=== PATIENT | female | born 1960 | race Caucasian/White ===

== ENCOUNTER 2017-02-07 12:21 | Outpatient (CLI) | payer OTHER | END 2017-02-07 12:22 | disposition home or self-care (01) | DX: S83.241A Other tear of medial meniscus, current injury, right knee, initial encounter (principal); M17.11 Unilateral primary osteoarthritis, right knee ==

== ENCOUNTER 2017-02-14 14:12 | Outpatient (CLI) | payer OTHER | END 2017-02-14 14:13 | disposition home or self-care (01) | DX: G47.33 Obstructive sleep apnea (adult) (pediatric) (principal) ==

== ENCOUNTER 2017-03-28 18:45 | Outpatient (CLI) | payer OTHER | END 2017-03-28 18:46 | disposition home or self-care (01) | DX: I82.511 Chronic embolism and thrombosis of right femoral vein (principal) ==

== ENCOUNTER 2018-09-27 15:24 | Outpatient (CLI) | payer OTHER ==
--- NOTE | 2018-09-28 14:20 | MRI Report ---
Reason: KNEE PAIN, LEFT Procedure Date: 09/27/2018 Accession Number: [id number] / [id number] Procedure: MRI - Knee LT W/O CPT Code: FULL RESULT: EXAM: LEFT KNEE MRI WITHOUT CONTRAST EXAM DATE: 09/27/2018 04:20 PM. CLINICAL HISTORY: KNEE PAIN, LEFT. COMPARISON: Left knee radiographs 07/11/2018. TECHNIQUE: Multiplanar, multisequence T1-weighted and fluid-sensitive sequences of the knee without contrast. Other: None. FINDINGS: Bones: No fractures. No osseous lesions. There is remodeling of the undersurface of the patella with associated subchondral edema and cystic change. Marrow signal is otherwise normal. There are tricompartmental osteophytes.. Articular Cartilage: There is complete denudation of the articular cartilage at the patella and trochlea, with multifocal subchondral edema and cystic change. There is a broad area of deep partial thickness cartilage loss at the central weightbearing medial femoral condyle with shallow partial-thickness cartilage thinning at the medial tibial plateau. No subchondral edema. There is shallow partial-thickness cartilage loss of the central weightbearing lateral tibial plateau and lateral femoral condyle without subchondral marrow edema. Tricompartmental osteophyte formation. Medial Meniscus: There is a horizontal oblique tear of the posterior horn of the medial meniscus extending to the tibial surface. Lateral Meniscus: The lateral meniscus is intact. Cruciate Ligaments: The anterior and posterior cruciate ligaments are intact. Collateral Ligaments: The medial collateral and lateral collateral ligamentous structures are intact. Tendons: The quadriceps, patellar, semimembranosus, and popliteus tendons are unremarkable. Musculature: No edema or fatty atrophy. Other: Small effusion. Lobulated popliteal cysts adjacent to the central and lateral aspect of the posterior joint capsule likely reflect ganglion cyst. No loose bodies. The medial and lateral retinacula are intact. The subcutaneous tissues and fat pads are unremarkable. IMPRESSION: 1. Left knee osteoarthrosis, with complete denudation of the patellofemoral articular cartilage and underlying subchondral edema and cystic change, deep partial thickness cartilage loss of the weightbearing medial femoral condyle, and shallow partial-thickness cartilage loss at the lateral compartment, with tricompartmental osteophyte formation. 2. Horizontal oblique tear of the posterior horn of the medial meniscus. 3. Intact lateral meniscus. 4. Intact cruciate and collateral ligaments. 5. Small knee joint effusion with a lobulated popliteal cyst likely reflecting a ganglion cyst. RADIA MUSCULOSKELETAL RADIOLOGY SECTION
== END 2018-09-27 15:25 | disposition home or self-care (01) ==
LOC: DI 15:24
PROVIDERS: ATTEND Physician Assistant Medical
DX: M17.12 Unilateral primary osteoarthritis, left knee (principal); S83.242A Other tear of medial meniscus, current injury, left knee, initial encounter; M71.22 Synovial cyst of popliteal space [Baker], left knee

== ENCOUNTER 2018-10-21 13:32 | Outpatient (CLI) | payer OTHER ==
--- NOTE | 2018-10-22 07:00 | Mammography Report ---
Reason: mastalgia bilat Procedure Date: 10/21/2018 Accession Number: [id number] / [id number] Procedure: MARY - Diagnostic Bilat 3D Dc CPT Code: 36432 FULL RESULT: EXAM: Diagnostic Bilat 3D Dc DATE: 10/21/2018 3:16 PM CLINICAL HISTORY: 58-year-old female presents with chronic left breast tenderness for the past few years. Patient has a history of breast cysts. TECHNIQUE: Bilateral CC and MLO as well as exaggerated CC views were obtained. COMPARISON: 11/08/2016, 11/01/2015, 10/21/2014, 03/12/2013, 02/26/2013. FINDINGS: The breasts demonstrate scattered fibroglandular densities bilaterally. Well-circumscribed isodense nodules in the right breast are again seen, stable and compatible with provided history of cysts. No suspicious masses, calcifications or architectural distortions are identified. IMPRESSION: Benign findings RECOMMENDATION: Recommend routine annual Screening mammography unless otherwise clinically indicated. BIRADS CATEGORY 2: Benign findings STANDARD QUALIFYING STATEMENTS: 1. This examination was not reviewed with the aid of Computer-Aided Detection (CAD). 2. A negative or benign imaging report should not delay biopsy if clinically suspicious findings are present. Consider surgical consultation if warrented. More than 5% of cancers are not identified by imaging. 3. Dense breasts may obscure an underlying neoplasm. 4. This examination was reviewed with the aid of 3D imaging (tomography).
== END 2018-10-21 13:33 | disposition home or self-care (01) ==
LOC: DI 13:32
PROVIDERS: ATTEND Physician Assistant Medical
DX: N64.4 Mastodynia (principal)
CPT/HCPCS: 77062; 77066

== ENCOUNTER 2018-10-25 08:00 | Outpatient (CLI) | payer OTHER ==
[2018-10-25 12:47] LABS: BASOPHILS % (AUTO) 0.4 %; EOSINOPHILS # (AUTO) 0.1 10^3/uL (0.0-0.7); EOSINOPHILS % (AUTO) 2.3 %; HGB - HEMOGLOBIN 12.8 g/dL (12.0-16.0); LYMPHOCYTES # (AUTO) 1.7 10^3/uL (1.5-3.5); LYMPHOCYTES % (AUTO) 27.2 %; MEAN CORPUSCULAR HGB CONC 33.4 g/dL (32.0-36.0); MEAN CORPUSCULAR VOLUME 80.9 fL (81.0-99.0); MEAN PLATELET VOLUME 7.7 fL (7.9-10.8); MONOCYTES # (AUTO) 0.6 10^3/uL (0.0-1.0); NEUTROPHILS # (AUTO) 3.9 10^3/uL (1.5-6.6); NEUTROPHILS % (AUTO) 61.1 %; PLT - PLATELET COUNT 208 10^3/uL (130-450); RED BLOOD COUNT 4.74 10^6/uL (4.20-5.40); RED CELL DISTRIBUTION WIDTH 15.8 % (12.0-15.0); WHITE BLOOD COUNT 6.3 x10^3/uL (4.8-10.8)
[2018-10-25 13:51] LABS: ALBUMIN 3.6 g/dL (3.2-5.5); ALKALINE PHOSPHATASE 100 IU/L (42-121); ALT ALANINE AMINOTRANSFERASE 16 IU/L (10-60); AST ASPARTATE AMINOTRANSFERASE 57 IU/L (10-42); BILIRUBIN,TOTAL 0.7 mg/dL (0.2-1.0); BUN - BLOOD UREA NITROGEN 11 mg/dL (6-20); CALCIUM 8.7 mg/dL (8.5-10.3); CARBON DIOXIDE - CO2 26 mmol/L (21-32); CHLORIDE 104 mmol/L (101-111); CHOL/HDL RATIO 4.8 (<4.4); CHOLESTEROL 207 mg/dL; CREATININE 0.7 mg/dL (0.4-1.0); GFR - MDRD 87 (>89); GLUCOSE 98 mg/dL (70-100); HDL CHOLESTEROL 43 mg/dL; LDL CHOLESTEROL,CALCULATED 141 mg/dL; LDL/HDL RATIO 3.3 (<4.4); SODIUM 138 mmol/L (135-145); TOTAL PROTEIN 7.3 g/dL (6.7-8.2); VLDL CHOLESTEROL 23 mg/dL
== END 2018-10-25 23:59 | disposition home or self-care (01) ==
LOC: LAB.WCP 08:00
PROVIDERS: ATTEND Physician Assistant Medical
DX: Z00.00 Encounter for general adult medical examination without abnormal findings (principal); E55.9 Vitamin D deficiency, unspecified
CPT/HCPCS: 36415; 80053; 80061; 82306; 83721; 84443; 85025

== ENCOUNTER 2019-08-25 11:09 | Outpatient (CLI) | payer OTHER ==
[2019-08-25 12:31] VITALS: BP 134/94
--- NOTE | 2019-08-25 12:31 | SLEEP CARE CONSULTATION ---
Information from patient questionnaire entered by Chelsea Bagley. I have reviewed and concur with the information entered by Chelsea Bagley. This document represents the service I personally performed and the decisions made by me, Rosa Ley, RN, MSN, [employer]. History of Present Illness Previous diagnosis: Moderate, Obstructive Sleep Apnea-Hypopnea Syndrome AHI: 17.6 Reason for CPAP/BiPAP follow up: annual (last seen January 2017 and thought had been here in 2018 ) Equipment type: CPAP Equipment obtained from: [facility] (having getting supplies despite calls ready but not availbable when went there.) Mask style: Nasal (Dreamwear) Mask brand: Respironics Backup mask available: No (wearing back up ) Last cushion change: 3 months ago Prior sleep studies: Yes Year and Where: 2007 [facility] CPAP Compliance Data - Data Reviewed with Patient Average duration of nightly device use: 8H 18M Compliance rate %: 100 Current pressure setting (cmH2O): 9 Humidity settin Heated hose settin Average residual AHI: 2.4 Subjective Patient concerns: reports: mask leak noise (a few times a night. ), condensation in mask/hose (in mask cushion only. ), dry mouth, nose, throat (has sjorgens and increased dryness with increase at night with CPAP a couple times a night), epistaxis (2 epitaxis this year with scant blood noted on tissue a few times a week), other (HEADACHE). denies: air blowing in eyes, nasal congestion Current pressure setting perceived as: comfortable On therapy, patient: reports: sleeping better, being more awake and alert during the day, more rested overall (but daytime fatigue. ). denies: awakening more refreshed, drowsiness while driving Initial [place] Sleepiness Scale score: 5 Current [place] Sleepiness Scale score: 2 Allergies and Home Medications Known drug allergies: Yes Home medication list reviewed: Yes Allergy and home medication list: Diltiazem 120mg daily Zyrtec 10mg as needed Vitamin 5000 daily. Review of Systems Review of systems same as previous: Yes Physical Exam Blood Pressure: 134/94 (monitors at home lower at home 120/80 range has guidelines ) Cuff size: long Heart Rate: 90 O2 Saturation: 97 Height: 5 ft 6 in Weight: 292 lb 12.8 oz Body Mass Index: 47.2 BMI Classification: Obesity Class 3 Nasal exam: positive: erythema, excoriation (left lower nare mucosa) Impression and Plan 1. Obstructive Sleep Apnea-Hypopnea Syndrome, moderate, with good treatment compliance and good apnea control. On CPAP therapy, the patient has better sleep quality and is more rested overall. To reduce mask leaks and disruption of sleep, she was shown a CPAP pillow. This and other styles can be bought online. She has gained weight and is on a Med dash diet by her slate splitting supervisor. It is m aking her feel better. She is also working out 4 days a week minimum. Thus I explained how her weight affects her apnea risk and CPAP pressure requirements. She is advised of symptoms to report for pressure adjustment. Since she has been noted to snore by her daughter, I will put her on an autoCPAP range to increase as needed as well as lower with weight loss. I will have this changed on her old CPAP until she can update her new CPAP. Since she is having difficulty getting supplies, she would like to transfer to another company. I will have my administrative support coordinator notify her of her choices and the CPAP will be updated with transfer DWO prescription. For her nasal dryness, she was given samples of Lily Ease nasal cream. She was informed not to use the humidity due to coldness of apartment. She was advised she could put distilled water in reservoir as a pass over so no condensation but some moisture to reduce dryness symptoms until she can get a new CPAP with heated hose. Patient's apnea severity and rationale for treatment to reduce apnea, improve sleep quality and reduce cardiovascular and cerebrovascular events was reviewed. I also reviewed the benefit of consistent device use of CPAP for gastric reflux. * Change CPAP pressure to 8-12 cmH2O * update CPAP * transfer to new DME * Implement methods to reduce nasal dryness. * Notify me if snoring with mask or feeling that the pressure is too much or too little * Attempt to lose weight * Return for follow up in 1 month after new device , or sooner if concerns arise I spent 100% of this 40 minute visit face to face with the patient with greater than 50% of this was spent time counseling the patient and coordination of care.
== END 2019-08-25 11:10 | disposition home or self-care (01) ==
LOC: SC 11:09
PROVIDERS: ATTEND Nurse Practitioner Family
DX: G47.33 Obstructive sleep apnea (adult) (pediatric) (principal); E66.9 Obesity, unspecified; Z68.42 Body mass index [BMI] 45.0-49.9, adult
CPT/HCPCS: 99212; 99215

== ENCOUNTER 2020-02-02 08:00 | Outpatient (CLI) | payer OTHER ==
[2020-02-02 11:44] LABS: BASOPHILS % (AUTO) 0.4 %; EOSINOPHILS # (AUTO) 0.2 10^3/uL (0.0-0.7); EOSINOPHILS % (AUTO) 3.1 %; HGB - HEMOGLOBIN 13.9 g/dL (12.0-16.0); LYMPHOCYTES # (AUTO) 2.1 10^3/uL (1.5-3.5); LYMPHOCYTES % (AUTO) 39.1 %; MEAN CORPUSCULAR HEMOGLOBIN 27.9 pg (27.0-31.0); MEAN CORPUSCULAR HGB CONC 32.7 g/dL (32.0-36.0); MEAN CORPUSCULAR VOLUME 85.3 fL (81.0-99.0); MEAN PLATELET VOLUME 9.5 fL (7.9-10.8); MONOCYTES # (AUTO) 0.5 10^3/uL (0.0-1.0); MONOCYTES % (AUTO) 9.7 %; NEUTROPHILS # (AUTO) 2.6 10^3/uL (1.5-6.6); NEUTROPHILS % (AUTO) 47.3 %; PLT - PLATELET COUNT 221 10^3/uL (130-450); RED BLOOD COUNT 4.98 10^6/uL (4.20-5.40); RED CELL DISTRIBUTION WIDTH 15.3 % (12.0-15.0); WHITE BLOOD COUNT 5.5 x10^3/uL (4.8-10.8)
[2020-02-02 12:24] LABS: FERRITIN 76.6 ng/mL (11.0-306.8)
[2020-02-02 12:45] LABS: % IRON SATURATION 14 % (20-50); ALBUMIN 3.9 g/dL (3.2-5.5); ALBUMIN/GLOBULIN RATIO 1.1 (1.0-2.2); ALKALINE PHOSPHATASE 79 IU/L (42-121); ALT ALANINE AMINOTRANSFERASE 17 IU/L (10-60); AST ASPARTATE AMINOTRANSFERASE 40 IU/L (10-42); BILIRUBIN,TOTAL 0.6 mg/dL (0.2-1.0); BUN - BLOOD UREA NITROGEN 14 mg/dL (6-20); CARBON DIOXIDE - CO2 25 mmol/L (21-32); CHLORIDE 104 mmol/L (101-111); CHOL/HDL RATIO 4.1 (<4.4); CHOLESTEROL 196 mg/dL; CREATININE 0.7 mg/dL (0.4-1.0); GFR - MDRD 86 (>89); GLUCOSE 110 mg/dL (70-100); HDL CHOLESTEROL 48 mg/dL; IRON 53 ug/dL (28-170); LDL CHOLESTEROL,CALCULATED 130 mg/dL; LDL/HDL RATIO 2.7 (<4.4); SODIUM 137 mmol/L (135-145); TOTAL IRON BINDING CAPACITY 370 ug/dL (250-450); TOTAL PROTEIN 7.3 g/dL (6.7-8.2); TRANSFERRIN 264 mg/dL (192-382); VLDL CHOLESTEROL 18 mg/dL
== END 2020-02-02 23:59 | disposition home or self-care (01) ==
LOC: LAB.WCP 08:00
PROVIDERS: ATTEND Physician Assistant Medical
DX: D64.9 Anemia, unspecified (principal); I10 Essential (primary) hypertension; M35.00 Sjogren syndrome, unspecified; I47.1 Supraventricular tachycardia; E78.9 Disorder of lipoprotein metabolism, unspecified
CPT/HCPCS: 36415; 80053; 80061; 82607; 82728; 83540; 83721; 84443; 84466; 85025

== ENCOUNTER 2020-02-23 10:56 | Outpatient (CLI) | payer OTHER ==
--- NOTE | 2020-02-23 12:55 | SLEEP CARE CONSULTATION ---
Information from patient questionnaire entered by Karma Small. I have reviewed and concur with the information entered by Karma Small. This document represents the service I personally performed and the decisions made by me, Ja Bailey MD, [facility]. History of Present Illness Previous diagnosis: Moderate, Obstructive Sleep Apnea-Hypopnea Syndrome AHI: 17.6 (in 2007) Reason for follow up: first compliance after device update Equipment type: CPAP Equipment obtained from: [facility] additional information: To minimize the risk of COVID-19 exposure, we have the option to conduct your visit with me over the phone. I will be able to discuss your health and offer medical advice. If you agree, we will bill your insurance. Do you agree to this telephone service: YES. HPI: Ms. Calderon called today for follow up of her recently acquired CPAP. She was diagnosed to have moderate obstructive sleep apnea-hypopnea syndrome. The patient wears with a Respironics DreamWear nasal cushion mask. She reports using the device nightly and all through the night. The compliance data show usage in 30 out of the past 30 nights, averaging 8.6 hours a night. The > 4 hour compliance rate for the past 30 days is 100%. She complained of no particular problem with the device such as soreness on the face, dry nose, epistaxis, nasal congestion or headache. She thinks that the pressure of 8 12 cmH2O is comfortable. On the CPAP therapy she notices improvement in her sleep quality, and that she wakes up feeling fresher in the morning and more awake/alert during the day. The average residual AHI is 0.6 : and air leak, 0.3 L/min. The 90th percentile pressure is 11.2 cmH2O. CPAP Compliance Data - Data Reviewed with Patient Average duration of nightly device use: 8.5 Compliance rate %: 100 Current pressure setting (cmH2O): 8-12 Humidity settin Average residual AHI: 0.6 Subjective Initial [place] Sleepiness Scale score: 5 Allergies and Home Medications Drug allergies reviewed: Yes Home medication list reviewed: Yes Review of Systems Review of systems same as previous: Yes Physical Exam Height: 5 ft 6 in Impression and Plan IMPRESSION: 1. Obstructive Sleep Apnea-Hypopnea Syndrome, moderate, with the patient doing well on nasal CPAP therapy. She has excellent compliance and significant clinical improvement. The current pressure appears effective and comfortable. Her mask fits well. Overall, she is very satisfied with treatment and plans to continue with it long-term. No adjustment is necessary today. PLAN: 1. Continue with autoCPAP set at 8 - 12 cmH2O. 2. Spend less time in bed because she is complaining of insomnia. 3. Return for follow up in a year or earlier if there is any problem. I spent 100% of the 12 minute phone call with the patient with greater than 50% of this spent counseling the patient and coordination of care.
== END 2020-02-23 10:57 | disposition home or self-care (01) ==
LOC: SC 10:56
PROVIDERS: ATTEND Internal Medicine Pulmonary Disease
DX: G47.33 Obstructive sleep apnea (adult) (pediatric) (principal)

== ENCOUNTER 2020-04-14 08:00 | Outpatient (CLI) | payer OTHER ==
[2020-04-14 13:29] LABS: BASOPHILS % (AUTO) 0.4 %; EOSINOPHILS # (AUTO) 0.2 10^3/uL (0.0-0.7); EOSINOPHILS % (AUTO) 3.3 %; HGB - HEMOGLOBIN 13.8 g/dL (12.0-16.0); LYMPHOCYTES % (AUTO) 36.2 %; MEAN CORPUSCULAR HEMOGLOBIN 26.7 pg (27.0-31.0); MEAN CORPUSCULAR HGB CONC 31.2 g/dL (32.0-36.0); MEAN CORPUSCULAR VOLUME 85.5 fL (81.0-99.0); MEAN PLATELET VOLUME 9.8 fL (7.9-10.8); MONOCYTES # (AUTO) 0.5 10^3/uL (0.0-1.0); MONOCYTES % (AUTO) 9.4 %; NEUTROPHILS # (AUTO) 2.8 10^3/uL (1.5-6.6); NEUTROPHILS % (AUTO) 50.5 %; PLT - PLATELET COUNT 222 10^3/uL (130-450); RED BLOOD COUNT 5.17 10^6/uL (4.20-5.40); RED CELL DISTRIBUTION WIDTH 15.4 % (12.0-15.0); WHITE BLOOD COUNT 5.5 x10^3/uL (4.8-10.8)
[2020-04-14 14:07] LABS: CALCIUM 8.9 mg/dL (8.5-10.3); CREATININE 0.7 mg/dL (0.4-1.0); CRP - C-REACTIVE PROTEIN 1.7 mg/dL (0-1.0)
== END 2020-04-14 23:59 | disposition home or self-care (01) ==
LOC: LAB.WCP 08:00
PROVIDERS: ATTEND Physician Assistant Medical
DX: R73.9 Hyperglycemia, unspecified (principal); R23.3 Spontaneous ecchymoses
CPT/HCPCS: 36415; 80048; 85025; 85651; 86140

== ENCOUNTER 2021-05-13 08:32 | Outpatient (CLI) | payer OTHER ==
--- NOTE | 2021-05-13 13:59 | XRAY Report ---
PROCEDURE: Knee 3 View BILAT INDICATIONS: ARTHRITIS, KNEES, BILATERAL TECHNIQUE: 3 views of the bilateral knee(s) were acquired. COMPARISON: MRI left knee 10-13 left knee x-ray 07/11/2018, right knee x-ray 10/13/2018 FINDINGS: Bones: No fractures or dislocations. No suspicious bony lesions. Left knee demonstrates moderate m edial and patellofemoral compartment narrowing. Periarticular osteophytes are present. No erosions. I n addition, there is mild lateral compartment narrowing, notably progressive compared to prior exam. The right extremity demonstrates tibial fransisca fixation with old distal fractures. Hardware is intact. T here is moderate medial/patellofemoral and mild lateral compartment narrowing with periarticular oste ophytes. No erosions. Soft tissues: No joint effusion. No suspicious soft tissue calcifications. IMPRESSION: 1. Tricompartmental arthritic changes bilaterally progressive compared to prior exam as above. Reviewed by: Ivonne Johnston MD on 05/13/2021 1:58 PM PDT Approved by: Ivonne Johnston MD on 05/13/2021 1:58 PM PDT Station ID: [id number]
== END 2021-05-13 08:33 | disposition home or self-care (01) ==
LOC: DI.N 08:32
PROVIDERS: ATTEND Physician Assistant Medical
DX: M17.0 Bilateral primary osteoarthritis of knee (principal)

== ENCOUNTER 2021-07-07 07:24 | Outpatient (CLI) | payer OTHER ==
[2021-07-07 12:17] LABS: BASOPHILS % (AUTO) 0.2 %; EOSINOPHILS # (AUTO) 0.2 10^3/uL (0.0-0.7); EOSINOPHILS % (AUTO) 2.7 %; HCT - HEMATOCRIT 43.7 % (37.0-47.0); HGB - HEMOGLOBIN 13.6 g/dL (12.0-16.0); LYMPHOCYTES # (AUTO) 2.1 10^3/uL (1.5-3.5); LYMPHOCYTES % (AUTO) 36.3 %; MEAN CORPUSCULAR HEMOGLOBIN 26.7 pg (27.0-31.0); MEAN CORPUSCULAR HGB CONC 31.1 g/dL (32.0-36.0); MEAN CORPUSCULAR VOLUME 85.9 fL (81.0-99.0); MEAN PLATELET VOLUME 9.7 fL (7.9-10.8); MONOCYTES # (AUTO) 0.5 10^3/uL (0.0-1.0); MONOCYTES % (AUTO) 9.3 %; NEUTROPHILS % (AUTO) 51.2 %; PLT - PLATELET COUNT 224 10^3/uL (130-450); RED BLOOD COUNT 5.09 10^6/uL (4.20-5.40); RED CELL DISTRIBUTION WIDTH 15.2 % (12.0-15.0); WHITE BLOOD COUNT 5.8 x10^3/uL (4.8-10.8)
[2021-07-07 12:24] LABS: ALBUMIN 3.9 g/dL (3.2-5.5); ALBUMIN/GLOBULIN RATIO 1.1 (1.0-2.2); ALKALINE PHOSPHATASE 84 IU/L (42-121); ALT ALANINE AMINOTRANSFERASE 20 IU/L (10-60); AST ASPARTATE AMINOTRANSFERASE 32 IU/L (10-42); BILIRUBIN,TOTAL 0.8 mg/dL (0.2-1.0); BUN - BLOOD UREA NITROGEN 15 mg/dL (6-20); CALCIUM 9.2 mg/dL (8.5-10.3); CARBON DIOXIDE - CO2 26 mmol/L (21-32); CHLORIDE 106 mmol/L (101-111); CHOL/HDL RATIO 5.3 (<4.4); CHOLESTEROL 230 mg/dL; CREATININE 0.8 mg/dL (0.4-1.0); GFR - MDRD 74 (>89); GLUCOSE 113 mg/dL (70-100); HDL CHOLESTEROL 43 mg/dL; LDL CHOLESTEROL,CALCULATED 169 mg/dL; LDL/HDL RATIO 3.9 (<4.4); POTASSIUM 4.2 mmol/L (3.5-5.0); SODIUM 141 mmol/L (135-145); TOTAL PROTEIN 7.6 g/dL (6.7-8.2); TRIGLYCERIDES 92 mg/dL; VLDL CHOLESTEROL 18 mg/dL
[2021-07-07 12:35] LABS: THYROID STIMULATING HORMONE 1.81 uIU/mL (0.34-5.60)
[2021-07-07 12:36] LABS: ESTIMATED AVERAGE GLUCOSE 143 mg/dL (70-100); HEMOGLOBIN A1c% 6.6 % (4.27-6.07)
== END 2021-07-07 23:59 | disposition home or self-care (01) ==
LOC: LAB.WCP 07:24
PROVIDERS: ATTEND Physician Assistant Medical
DX: Z00.00 Encounter for general adult medical examination without abnormal findings (principal); E78.5 Hyperlipidemia, unspecified; R73.9 Hyperglycemia, unspecified; D64.9 Anemia, unspecified
CPT/HCPCS: 36415; 80053; 80061; 83036; 83721; 84443; 85025

== ENCOUNTER 2021-07-15 09:02 | Outpatient (CLI) | payer OTHER ==
--- NOTE | 2021-07-18 16:00 | Mammography Report ---
BILATERAL DIGITAL SCREENING MAMMOGRAM 3D/2D: 07/15/2021 CLINICAL: Routine screening. Comparison is made to exams dated: 10/21/2018 mammogram, 11/08/2016 mammogram, 11/01/2015 mammogram, 10/21/2014 mammogram, 03/12/2013 mammogram, and 02/26/2013 mammogram - [facility]. Th ere are scattered fibroglandular elements in both breasts. No significant masses, calcifications, or other findings are seen in either breast. There has been no significant interval change. IMPRESSION: NEGATIVE There is no mammographic evidence of malignancy. A 1 year screening mammogram is recommended. This exam was interpreted at Station ID: [id number]. NOTE: For mammograms, a report in lay terms will be sent to the patient. Approximately 15% of breast malignancies will not be visualized mammographically. In the management of a palpable breast mass, a negative mammogram must not discourage biopsy of a clinically suspicious lesion. Electronically Signed By: Tommy Salazar M.D., jr/radha:07/15/2021 10:10:22 ACR BI-RADS Category 1: Negative 3341F PARENCHYMAL PATTERN: (A) - The breast(s) demonstrate(s) scattered fibroglandular densities. BI-RADS CATEGORY: (1) - 1 RECOMMENDATION: (ANNUAL) - Recommend routine annual screening mammography. [id number] 1 year screening LATERALITY: (B)
== END 2021-07-15 09:03 | disposition home or self-care (01) ==
LOC: DI 09:02
DX: Z12.31 Encounter for screening mammogram for malignant neoplasm of breast (principal)

== ENCOUNTER 2021-07-26 14:46 | Outpatient (CLI) | payer OTHER ==
--- NOTE | 2021-07-26 15:33 | SLEEP CARE CONSULTATION ---
Information from patient questionnaire entered by Karma Small. I have reviewed and concur with the information entered by Karma Small. This document represents the service I personally performed and the decisions made by , Ananya Reed ARNP. History of Present Illness Service Date and Time: 07/26/2021 1446 Previous diagnosis: Moderate, Obstructive Sleep Apnea-Hypopnea Syndrome AHI: 17.6 (in 2007) Reason for follow up: annual (last seen 01/2020) Equipment type: [facility] Mask style: Nasal Mask brand: Respironics (Dreamwear) Backup mask available: Yes (old mask) Last cushion change: last week Prior sleep studies: Yes Year and Where: [facility] additional information: JAMAL TAPIA was diagnosed to have moderate, AHI 17.6, obstructive sleep apnea-hypopnea syndrome and returned today for CPAP therapy annual follow-up. CPAP Compliance Data - Data Reviewed with Patient Average duration of nightly device use: 8 hr 24 min Compliance rate %: 99 (180 days) Current pressure setting (cmH2O): 8-12 Humidity settin Average residual AHI: 0.4 Subjective Patient concerns: denies: aerophagia, mask discomfort, air blowing in eyes, mask leak noise, condensation in mask/hose, nasal congestion, dry mouth, nose, throat, epistaxis, other Observed to snore while using device: No Current pressure setting perceived as: comfortable On therapy, patient: reports: other (She does not feel a lot of changes with using CPAP but likes the air/pressure). denies: drowsiness while driving Initial [place] Sleepiness Scale score: 5 (in 2010) Current [place] Sleepiness Scale score: 2 Allergies and Home Medications Home medication list reviewed: Yes (Metformin 500 mg 1 x/day) Review of Systems Review of systems same as previous: No (DM2) Physical Exam Heart Rate: 91 O2 Saturation: 96 Height: 5 ft 6 in Weight: 292 lb Body Mass Index: 47.1 BMI Classification: Morbidly Obese Impression and Plan 1. Obstructive Sleep Apnea-Hypopnea Syndrome, moderate, with excellent treatment compliance and excellent apnea control. Patient does not feel she is sleeping enough, does not feel rested or have better energy during the day. Currently patients BMI is 47.1. Obesity increases the risk of apnea, CPAP pressure requirements and overall health risks especially cardiovascular and diabetes. Thus patient is advised to continue to lose weight. Weight loss can be done with reducing portion size, reducing refined foods and balancing content with vegetables, fruit and whole grain foods. Patient is exercising regularly several times a week. She was encouraged to continue her efforts to lose weight. Patient's apnea severity and rationale for treatment to reduce apnea, improve sleep quality and reduce cardiovascular and cerebrovascular events was reviewed. I also reviewed the benefit of consistent device use of CPAP for gastric reflux and diabetes. 2. Insomnia, unspecified. She has issues with stress and does not sleep but 2-3 hours at night. Patient has had difficulty with waking up during the night and not being able to go back to sleep. She will fall asleep and then wake up a couple of hours later. She states she normally just lays with her eyes closed breathing with her CPAP for hours before she is able to go back to sleep. She has been working on her sleep hygiene by limiting her electronics. She states sometimes she is bothered by stress and ruminating thoughts. I discussed with her that if unable to sleep due to things on the mind, it is recommended to write out the concerns or list to do as a release then return to a quiet activity until sleepy enough to return to bed. This is to be repeated as often as necessary to associate the bed with sleep and not frustration to get to sleep. She voiced understanding. * Continue Auto CPAP pressure at 8-12 cmH2O * Notify me if snoring with mask or feeling that the pressure is too much or too little * Attempt to lose weight * Call this office if any problems using CPAP * Return for follow up in 1 year, or sooner if concerns arise Counseling Topics: Spare mask, Weight loss health impact Visit Type: In Office Time Spent with Patient (minutes): 27 Provider Statement: I spent 100% of the Face to Face Visit with the patient with greater than 50% spent counseling the patient and coordination of care.
== END 2021-07-26 14:47 | disposition home or self-care (01) ==
LOC: SC 14:46
PROVIDERS: ATTEND Nurse Practitioner Family
DX: G47.33 Obstructive sleep apnea (adult) (pediatric) (principal); G47.00 Insomnia, unspecified; E66.01 Morbid (severe) obesity due to excess calories; Z68.42 Body mass index [BMI] 45.0-49.9, adult
CPT/HCPCS: 99212; 99213

== ENCOUNTER 2021-09-30 08:00 | Outpatient (CLI) | payer OTHER ==
[2021-09-30 14:53] LABS: ESTIMATED AVERAGE GLUCOSE 137 mg/dL (70-100); HEMOGLOBIN A1c% 6.4 % (4.27-6.07)
[2021-09-30 14:54] LABS: CALCIUM 8.9 mg/dL (8.5-10.3); CREATININE 0.7 mg/dL (0.4-1.0); POTASSIUM 3.9 mmol/L (3.5-5.0)
== END 2021-09-30 23:59 | disposition home or self-care (01) ==
LOC: LAB.WCP 08:00
PROVIDERS: ATTEND Physician Assistant Medical
DX: E11.9 Type 2 diabetes mellitus without complications (principal)
CPT/HCPCS: 36415; 80048; 82043; 82570; 83036

== ENCOUNTER 2022-07-25 09:17 | Outpatient (CLI) | payer OTHER ==
[2022-07-25 12:18] LABS: ALBUMIN 3.7 g/dL (3.2-5.5); ALKALINE PHOSPHATASE 81 IU/L (42-121); ALT ALANINE AMINOTRANSFERASE 19 IU/L (10-60); AST ASPARTATE AMINOTRANSFERASE 28 IU/L (10-42); BILIRUBIN,TOTAL 0.6 mg/dL (0.2-1.0); BUN - BLOOD UREA NITROGEN 15 mg/dL (6-20); CALCIUM 9.2 mg/dL (8.5-10.3); CARBON DIOXIDE - CO2 20 mmol/L (21-32); CHLORIDE 104 mmol/L (101-111); CHOL/HDL RATIO 4.5 (<4.4); CHOLESTEROL 207 mg/dL; CREATININE 0.7 mg/dL (0.4-1.0); GFR - MDRD 86 (>89); GLUCOSE 119 mg/dL (70-100); HDL CHOLESTEROL 46 mg/dL; LDL CHOLESTEROL,CALCULATED 135 mg/dL; LDL/HDL RATIO 2.9 (<4.4); POTASSIUM 3.9 mmol/L (3.5-5.0); SODIUM 136 mmol/L (135-145); TOTAL PROTEIN 7.4 g/dL (6.7-8.2); TRIGLYCERIDES 130 mg/dL; VLDL CHOLESTEROL 26 mg/dL
[2022-07-25 12:40] LABS: ESTIMATED AVERAGE GLUCOSE 148 mg/dL (70-100); HEMOGLOBIN A1c% 6.8 % (4.27-6.07)
== END 2022-07-25 09:18 | disposition home or self-care (01) ==
LOC: LAB.N 09:17
PROVIDERS: ATTEND Physician Assistant Medical
DX: E11.9 Type 2 diabetes mellitus without complications (principal)
CPT/HCPCS: 36415; 80053; 80061; 83036; 83721

== ENCOUNTER 2022-10-06 10:42 | Outpatient (CLI) | payer OTHER ==
--- NOTE | 2022-10-06 10:26 | SLEEP CARE CONSULTATION ---
Information from patient questionnaire entered by Jessica Butt. I have reviewed and concur with the information entered by Jessica Butt. This document represents the service I personally performed and the decisions made by me, Ananya Reed ARNP. History of Present Illness Service Date and Time: 10/06/2022 1000 Previous diagnosis: Moderate, Obstructive Sleep Apnea-Hypopnea Syndrome AHI: 17.6 (in 2007) Reason for follow up: annual (LAST SEEN 06/2021) Equipment type: CPAP (RESMED) Equipment obtained from: [employer] (getting supplies as needed) Mask style: Nasal Backup mask available: Yes (old mask) Last cushion change: 2 days ago Prior sleep studies: Yes Year and Where: [address] [place] [address] HPI additional information: JAMAL TAPIA was diagnosed to have moderate, AHI 17.6, obstructive sleep apnea-hypopnea syndrome and returns via video telehealth visit today for CPAP therapy annual follow-up. Sleep Study - Results Prior sleep studies: Yes Year and Where: [address] [place] [address] CPAP Compliance Data - Data Reviewed with Patient Average duration of nightly device use: 9 HRS, 11 MIN Compliance rate %: 99 (04/08/2022-10/04/2022; 180/180 days used) Current pressure setting (cmH2O): 8-12 Average residual AHI: 0.6 Central apnea: 0.0 Obstructive apnea: 0.3 Compliance data discussion: She wears her CPAP every night but states she falls asleep until about 3 AM and she is not able to go back to sleep. She is wearing her CPAP until about 0630. She is usually just laying there and turning over. Her mind will not shut off and she has some physical pain. Subjective Patient concerns: reports: dry mouth, nose, throat (nose and mouth dryness; her humidifier is off and will switch back on). denies: aerophagia, mask discomfort, air blowing in eyes, mask leak noise, condensation in mask/hose, nasal congestion, epistaxis Observed to snore while using device: No Current pressure setting perceived as: comfortable On therapy, patient: reports: sleeping better, awakening more refreshed, being more awake and alert during the day, more rested overall. denies: drowsiness while driving Initial [place] Sleepiness Scale score: 5 (in 2010) Current [place] Sleepiness Scale score: 1 (10/06/2022) Allergies and Home Medications Drug allergies reviewed: Yes (as listed in EMR) Home medication list reviewed: Yes (Omeprazole 20 mg; Ozempic 1 x wk) Review of Systems Review of systems same as previous: Yes (colonoscopy/endoscopy; borderline DM) Physical Exam Vital signs obtained and entered by: VIA PHONE Height: 5 ft 7 in (PER PT ) Weight: 298 lb (PER PT) Body Mass Index: 46.6 BMI Classification: Morbidly Obese Impression and Plan 1. Obstructive Sleep Apnea-Hypopnea Syndrome, moderate, with good treatment compliance and good apnea control. On CPAP therapy, the patient has better sleep quality and is more rested overall. Patient has significant improvement of their sleep apnea and are satisfied with current CPAP therapy. Patient has been getting some oral dryness but states she has had her humidifier off and will be switching it back on. Patient is looking into nonsurgical weight loss. She was talking to them about her sleep, she is unable to sleep from 3 to 6:30 in the morning. She has been having some insomnia regulated pain and stress in her life. They have signed her up for an insomnia workshop to help her improve her overall sleep. I advised her to try to get out of bed when she is unable to fall asleep at 3 AM. To do a quiet activity until she feels she can go to sleep and then lay back down. If unable to fall asleep in 15 to 20 minutes she should repeat this process to help retrain her mind that the bed is for sleep. She voiced understanding. Patient's apnea severity and rationale for treatment to reduce apnea, improve sleep quality and reduce cardiovascular and cerebrovascular events was reviewed. I also reviewed the benefit of consistent device use of CPAP for diabetes and gastric reflux. 2. Obesity, unspecified. Currently patients BMI is 46.6. Obesity increases the risk of apnea, CPAP pressure requirements and overall health risks especially cardiovascular and diabetes. Thus patient is advised to lose weight. Weight loss can be done with reducing portion size, reducing refined foods and balancing content with vegetables, fruit and whole grain foods. In addition, patient encouraged to get regular exercise. The patient's CPAP pressure range should accommodate some weight loss. * Continue auto CPAP pressure at 8-12 cmH2O * Update supplies * Notify me if snoring with mask or feeling that the pressure is too much or too little * Attempt to lose weight * Call this office if any problems using CPAP * Return for follow up in 1 year, or sooner if concerns arise Counseling Topics: Spare mask, Weight loss health impact Visit Type: Telehealth Video Video Type: Doximity Patient Location: Home Location of Provider: Office Patient agrees and consents to this telehealth visit type: Yes Patient agrees to have their insurance billed: Yes Time Spent with Patient (minutes): 22 Provider Statement: I spent 100% of the Telehealth Video Call with the patient with greater than 50% spent counseling the patient and coordination of care.
== END 2022-10-06 10:43 | disposition home or self-care (01) ==
LOC: SC 10:42
PROVIDERS: ATTEND Nurse Practitioner Family
DX: G47.33 Obstructive sleep apnea (adult) (pediatric) (principal); E66.01 Morbid (severe) obesity due to excess calories; Z68.42 Body mass index [BMI] 45.0-49.9, adult

== ENCOUNTER 2022-12-20 09:40 | Outpatient (CLI) | payer OTHER | END 2022-12-20 23:59 | disposition home or self-care (01) | LOC: LAB.N 09:40 | PROVIDERS: ATTEND Family Medicine | DX: N39.0 Urinary tract infection, site not specified (principal) | CPT/HCPCS: 87086; 87181 ==

== ENCOUNTER 2023-02-01 07:36 | Outpatient (CLI) | payer OTHER ==
[2023-02-01 12:39] LABS: ALBUMIN 3.7 g/dL (3.2-5.5); ALKALINE PHOSPHATASE 89 IU/L (42-121); ALT ALANINE AMINOTRANSFERASE 18 IU/L (10-60); AST ASPARTATE AMINOTRANSFERASE 29 IU/L (10-42); BILIRUBIN,TOTAL 0.6 mg/dL (0.2-1.0); BUN - BLOOD UREA NITROGEN 13 mg/dL (6-20); CALCIUM 9.4 mg/dL (8.5-10.3); CARBON DIOXIDE - CO2 26 mmol/L (21-32); CHLORIDE 104 mmol/L (101-111); CHOL/HDL RATIO 4.4 (<4.4); CHOLESTEROL 212 mg/dL; CREATININE 0.7 mg/dL (0.4-1.0); GFR - MDRD 85 (>89); GLUCOSE 136 mg/dL (70-100); HDL CHOLESTEROL 48 mg/dL; LDL CHOLESTEROL,CALCULATED 146 mg/dL; POTASSIUM 3.8 mmol/L (3.5-5.0); SODIUM 139 mmol/L (135-145); TOTAL PROTEIN 7.4 g/dL (6.7-8.2); TRIGLYCERIDES 89 mg/dL; VLDL CHOLESTEROL 18 mg/dL
[2023-02-01 14:52] LABS: ESTIMATED AVERAGE GLUCOSE 154 mg/dL (70-100)
[2023-02-02 08:10] LABS: HBsAG SCREEN Negative (Negative); HEPATITIS B SURFACE AB QUANT <3.1 mIU/mL (Immunity>9.9)
[2023-02-06 07:10] LABS: HCV IU/ML HCV Not Detected IU/mL (.)
== END 2023-02-01 07:37 | disposition home or self-care (01) ==
LOC: LAB.N 07:36
PROVIDERS: ATTEND Internal Medicine Gastroenterology
DX: I85.00 Esophageal varices without bleeding (principal); E11.9 Type 2 diabetes mellitus without complications; R13.10 Dysphagia, unspecified
CPT/HCPCS: 36415; 80053; 80061; 83036; 83721; 86317; 86704; 87340; 87522

== ENCOUNTER 2023-02-14 15:12 | Outpatient (CLI) | payer OTHER ==
--- NOTE | 2023-02-16 09:56 | Mammography Report ---
BILATERAL DIGITAL SCREENING MAMMOGRAM 3D/2D: 02/14/2023 CLINICAL: Routine screening. Comparison is made to exams dated: 07/15/2021 mammogram, 10/21/2018 mammogram, 11/08/2016 mammogram, 11/01/2015 mammogram, 10/21/2014 mammogram, and 03/12/2013 mammogram - [facility]. There are scattered areas of fibroglandular density in both breasts (category b / 25%-50% glandular t issue). There are two adjacent focal asymmetries in the right breast central to the nipple anterior depth. No other significant masses, calcifications, or other findings are seen in either breast. IMPRESSION: INCOMPLETE: NEEDS ADDITIONAL IMAGING EVALUATION There are two adjacent focal asymmetries in the right breast central to the nipple anterior depth, in determinant Additional views with possible ultrasound are recommended. Based on the Tyrer Cuzick model (a risk assessment model) the patients lifetime risk is 5.1% and her 10 year risk is 2.0%. According to the ACR, ACS, and NCCN guidelines, an annual breast MRI exam marck g with mammogram is recommended if the patients lifetime risk is 20% or greater. This exam was interpreted at Station ID: [id number]. NOTE: For mammograms, a report in lay terms will be sent to the patient. Approximately 15% of breast malignancies will not be visualized mammographically. In the management of a palpable breast mass, a negative mammogram must not discourage biopsy of a clinically suspicious lesion. Electronically Signed By: Reinaldo Calderón M.D. lc/:02/15/2023 10:21:36 ACR BI-RADS Category 0: Incomplete 3340F PARENCHYMAL PATTERN: (A) - The breast(s) demonstrate(s) scattered fibroglandular densities. BI-RADS CATEGORY: (0) - 0 Mammo and [place] [id number] Immediate follow-up LATERALITY: (B)
== END 2023-02-14 15:13 | disposition home or self-care (01) ==
LOC: DI.N 15:12
DX: Z12.31 Encounter for screening mammogram for malignant neoplasm of breast (principal); R92.8 Other abnormal and inconclusive findings on diagnostic imaging of breast

== ENCOUNTER 2023-02-19 15:29 | Outpatient (CLI) | payer OTHER ==
[2023-02-19] MEDS ORDERED: iohexoL-300 100 ML VIAL ONE (15:37)
[2023-02-19] MEDS ORDERED: iohexoL-300 100 ML VIAL IVP ONE (16:17)
--- NOTE | 2023-02-20 08:37 | CT Report ---
PROCEDURE: CHEST W INDICATIONS: PE, CHRONIC DVT CONTRAST:100ml Omnipaque 300 TECHNIQUE: After the administration of intravenous contrast, 1 mm axial images were acquired from the pulmonary apices through the posterior costophrenic angles. Axial 5 mm soft tissue kernel reconstructions were performed as well as 8 mm axial MIP and coronal and sagittal 5 mm reformations. For radiation dose reduction, the following was used: automated exposure control, adjustment of mA and/or kV according to patient size. COMPARISON: None FINDINGS: Image quality: Excellent. Lungs and pleura: No suspicious nodules which require follow up. No pleural effusions. No pneumothora x. No bronchial thickening. Mediastinum: Heart size is normal. No pericardial effusions. No mediastinal adenopathy by size criter ia. No large vessel abnormality. Small hiatal hernia. Marked coronary artery calcifications for age. Chest wall and lower neck: Thyroid is unremarkable. No axillary or supraclavicular adenopathy by size . Bones: No aggressive osseous abnormality. Upper Abdomen: Fluid attenuating right renal cyst. IMPRESSION: 1.No evidence of bronchitis. 2.Marked coronary artery calcifications for age. Consider cardiology referral. Reviewed by: Roger Golden on 02/20/2023 8:36 AM PDT Approved by: Roger Golden on 02/20/2023 8:36 AM PDT Station ID: [id number]
--- NOTE | 2023-02-20 10:42 | Ultrasound Report ---
PROCEDURE: Duplex Ext Veins Bilateral INDICATIONS: Natalia Espino PA-C TECHNIQUE: Real-time imaging, as well as color and pulse Doppler interrogation, were performed of the deep veins of both legs from the inguinal ligament to the popliteal fossa. COMPARISON: 03/28/2017 FINDINGS: The deep veins are normally compressible, and free of intraluminal thrombus. Color and pu lse Doppler demonstrate normal phasic intravascular flow. There is normal augmentation response to d istal compression maneuver. IMPRESSION: No DVT bilaterally. Markedly limited exam due to large body habitus. The calf veins in particular are not well seen. Reviewed by: Reinaldo Calderón MD on 02/20/2023 10:41 AM PDT Approved by: Reinaldo Calderón MD on 02/20/2023 10:41 AM PDT Station ID: [id number]
== END 2023-02-19 15:30 | disposition home or self-care (01) ==
LOC: DI 15:29
PROVIDERS: ATTEND Physician Assistant Medical
DX: I26.99 Other pulmonary embolism without acute cor pulmonale (principal); I82.511 Chronic embolism and thrombosis of right femoral vein
CPT/HCPCS: 71260; 93970; Q9967

== ENCOUNTER 2023-03-19 12:25 | Outpatient (CLI) | payer OTHER ==
--- NOTE | 2023-03-20 10:21 | Mammography Report ---
UNILATERAL RIGHT DIGITAL DIAGNOSTIC MAMMOGRAM 3D/2D: 03/19/2023 CLINICAL: Patient returns today to evaluate a focal asymmetry in the right breast. Comparison is made to exams dated: 02/14/2023 mammogram, 07/15/2021 mammogram, 10/21/2018 mammogram, 1 01/09/2016 mammogram, 11/01/2015 mammogram, and 10/21/2014 mammogram - [facility]. There are scattered areas of fibroglandular density in the right breast (category b / 25%-50% glandul ar tissue). There are multiple oval circumscribed masses in the right breast, the largest is central to the nippl e anterior depth measuring up to 1.5cm. This is seen in additional views. No other significant masses or calcifications are seen in the breast. IMPRESSION: INCOMPLETE: NEEDS ADDITIONAL IMAGING EVALUATION Multiple oval circumscribed masses in the right breast. The largest is retroareolar and is indetermin ant. An ultrasound is recommended. Based on the Tyrer Cuzick model (a risk assessment model) the patients lifetime risk is 5.1% and her 10 year risk is 2.0%. According to the ACR, ACS, and NCCN guidelines, an annual breast MRI exam markc g with mammogram is recommended if the patients lifetime risk is 20% or greater. This exam was interpreted at Station ID: [id number]. NOTE: For mammograms, a report in lay terms will be sent to the patient. Approximately 15% of breast malignancies will not be visualized mammographically. In the management of a palpable breast mass, a negative mammogram must not discourage biopsy of a clinically suspicious lesion. Electronically Signed By: Reinaldo Calderón M.D. lc/:03/19/2023 13:40:30 ACR BI-RADS Category 0: Incomplete 3340F PARENCHYMAL PATTERN: (A) - The breast(s) demonstrate(s) scattered fibroglandular densities. BI-RADS CATEGORY: (0) - 0 Ultrasound [id number] Immediate follow-up LATERALITY: (B)
--- NOTE | 2023-03-20 10:21 | Ultrasound Report ---
LIMITED ULTRASOUND OF RIGHT BREAST: 03/19/2023 CLINICAL: Patient returns today to evaluate a focal asymmetry in the right breast. Comparison is made to exams dated: 03/19/2023 mammogram, 02/14/2023 mammogram, 07/15/2021 mammogram, mammogram, 11/08/2016 mammogram, and 11/01/2015 mammogram - [facility]. Color flow ultrasound of the right breast 10 o'clock, and retroareolar regions was performed. Peoples s kesha images of the real-time examination were reviewed. There is a benign 1.3 cm x 0.7 cm x 1.2 cm oval simple cyst in the right breast central to the nipple in the retroareolar region. This corresponds to the largest oval circumscribed mass seen on mammogr aphy. Other simple cysts and cysts with debris are also seen on ultrasound, corresponding to other be nign oval circumscribed masses on mammography. IMPRESSION: BENIGN There is no sonographic evidence of malignancy. The 1.3 cm x 0.7 cm x 1.2 cm oval simple cyst in the right breast is benign. A 1 year screening mammogram is recommended. This exam was interpreted at Station ID: [id number]. Electronically Signed By: Reinaldo Calderón M.D. lc/:03/19/2023 13:42:24 Ultrasound BI-RADS: 2 Benign BI-RADS CATEGORY: (2) - 2 Mammogram [id number] 1 year screening LATERALITY: (B)
== END 2023-03-19 12:26 | disposition home or self-care (01) ==
LOC: DI 12:25
PROVIDERS: ATTEND Physician Assistant Medical
DX: R92.8 Other abnormal and inconclusive findings on diagnostic imaging of breast (principal); N60.11 Diffuse cystic mastopathy of right breast

== ENCOUNTER 2023-05-28 07:36 | Outpatient (CLI) | payer OTHER ==
[2023-05-28 12:18] LABS: ESTIMATED AVERAGE GLUCOSE 146 mg/dL (70-100); HEMOGLOBIN A1c% 6.7 % (4.27-6.07)
[2023-05-28 12:37] LABS: ALBUMIN 3.5 g/dL (3.2-5.5); ALBUMIN/GLOBULIN RATIO 0.9 (1.0-2.2); ALKALINE PHOSPHATASE 90 IU/L (42-121); ALT ALANINE AMINOTRANSFERASE 20 IU/L (10-60); AST ASPARTATE AMINOTRANSFERASE 30 IU/L (10-42); BILIRUBIN,TOTAL 0.4 mg/dL (0.2-1.0); BUN - BLOOD UREA NITROGEN 13 mg/dL (6-20); CALCIUM 8.9 mg/dL (8.5-10.3); CARBON DIOXIDE - CO2 27 mmol/L (21-32); CHLORIDE 104 mmol/L (101-111); CHOL/HDL RATIO 3.4 (<4.4); CHOLESTEROL 156 mg/dL; CREATININE 0.8 mg/dL (0.4-1.0); GFR - MDRD 73 (>89); GLUCOSE 133 mg/dL (70-100); HDL CHOLESTEROL 46 mg/dL; LDL CHOLESTEROL,CALCULATED 92 mg/dL; POTASSIUM 4.2 mmol/L (3.5-5.0); SODIUM 138 mmol/L (135-145); TOTAL PROTEIN 7.6 g/dL (6.7-8.2); TRIGLYCERIDES 91 mg/dL; VLDL CHOLESTEROL 18 mg/dL
== END 2023-05-28 07:37 | disposition home or self-care (01) ==
LOC: LAB.N 07:36
PROVIDERS: ATTEND Physician Assistant Medical
DX: E11.9 Type 2 diabetes mellitus without complications (principal)
CPT/HCPCS: 36415; 80053; 80061; 83036; 83721

== ENCOUNTER 2023-08-28 07:53 | Outpatient (CLI) | payer OTHER ==
[2023-08-28 13:14] LABS: CALCIUM 9.3 mg/dL (8.5-10.3); CREATININE 0.8 mg/dL (0.6-1.3); POTASSIUM 4.2 mmol/L (3.5-4.5)
[2023-08-28 14:27] LABS: ESTIMATED AVERAGE GLUCOSE 157 mg/dL (70-100); HEMOGLOBIN A1c% 7.1 % (4.27-6.07)
== END 2023-08-28 07:54 | disposition home or self-care (01) ==
LOC: LAB.N 07:53
PROVIDERS: ATTEND Physician Assistant Medical
DX: E11.9 Type 2 diabetes mellitus without complications (principal)
CPT/HCPCS: 36415; 80048; 83036

== ENCOUNTER 2024-01-21 08:18 | Outpatient (CLI) | payer OTHER ==
[2024-01-21 12:01] LABS: BASOPHILS % (AUTO) 0.3 %; EOSINOPHILS # (AUTO) 0.2 10^3/uL (0.0-0.7); EOSINOPHILS % (AUTO) 2.7 %; HGB - HEMOGLOBIN 13.9 g/dL (12.0-16.0); LYMPHOCYTES % (AUTO) 29.1 %; MEAN CORPUSCULAR HEMOGLOBIN 26.5 pg (27.0-31.0); MEAN CORPUSCULAR HGB CONC 31.6 g/dL (32.0-36.0); MEAN PLATELET VOLUME 9.5 fL (7.9-10.8); MONOCYTES # (AUTO) 0.5 10^3/uL (0.0-1.0); MONOCYTES % (AUTO) 7.9 %; NEUTROPHILS % (AUTO) 59.7 %; PLT - PLATELET COUNT 221 10^3/uL (130-450); RED BLOOD COUNT 5.24 10^6/uL (4.20-5.40); WHITE BLOOD COUNT 6.7 x10^3/uL (4.8-10.8)
[2024-01-21 12:19] LABS: ALBUMIN 4.2 g/dL (3.2-5.5); ALBUMIN/GLOBULIN RATIO 1.3 (1.0-2.2); ALKALINE PHOSPHATASE 102 IU/L (42-121); ALT ALANINE AMINOTRANSFERASE 17 IU/L (10-60); AST ASPARTATE AMINOTRANSFERASE 23 IU/L (10-42); BILIRUBIN,TOTAL 0.5 mg/dL (0.2-1.0); BUN - BLOOD UREA NITROGEN 20 mg/dL (6-20); CALCIUM 9.7 mg/dL (8.5-10.3); CARBON DIOXIDE - CO2 28 mmol/L (21-32); CHLORIDE 103 mmol/L (101-111); CHOL/HDL RATIO 3.3 (<4.4); CHOLESTEROL 153 mg/dL; GFR - MDRD 56 (>89); GLUCOSE 141 mg/dL (74-104); HDL CHOLESTEROL 46 mg/dL; LDL CHOLESTEROL,CALCULATED 85 mg/dL; LDL/HDL RATIO 1.8 (<4.4); POTASSIUM 4.2 mmol/L (3.5-4.5); SODIUM 137 mmol/L (135-145); TOTAL PROTEIN 7.4 g/dL (6.4-8.9); TRIGLYCERIDES 112 mg/dL (48-352); VLDL CHOLESTEROL 22 mg/dL
[2024-01-21 12:35] LABS: THYROID STIMULATING HORMONE 2.32 uIU/mL (0.34-5.60)
[2024-01-21 12:48] LABS: ESTIMATED AVERAGE GLUCOSE 154 mg/dL (70-100)
== END 2024-01-21 08:19 | disposition home or self-care (01) ==
LOC: LAB.N 08:18
PROVIDERS: ATTEND Physician Assistant Medical
DX: Z00.00 Encounter for general adult medical examination without abnormal findings (principal); E11.9 Type 2 diabetes mellitus without complications
CPT/HCPCS: 36415; 80053; 80061; 82043; 82570; 83036; 83721; 84443; 85025

== ENCOUNTER 2024-02-01 14:53 | Outpatient (CLI) | payer OTHER ==
--- NOTE | 2024-02-01 16:36 | Ultrasound Report ---
PROCEDURE: Ankle Brachial Index INDICATIONS: VENOUS STASIS TECHNIQUE: Wrist ankle indices were obtained bilaterally and recorded. Of note the upper extremity b lood pressures were obtained at the wrist due to patient refusal of a brachial pressure. COMPARISONS: None. FINDINGS: Wrist blood pressure: 156 mmHg Right ankle: 153 mmHg Right ankle wrist index (LUCI): 0.9 Wrist blood pressure: 149mmHg Left ankle: ): 165mmHg Left ankle wrist index (LUCI): 1 Triphasic waveforms in the bilateral posterior tibial and dorsalis pedis arteries. Healing potential: Ankle pressures >55 mm Hg in non-diabetics and >80 mm Hg in diabetics are likely to achieve primary h ealing of ischemic foot ulcers. Toe pressures >30 mm Hg are likely to achieve primary healing of ischemic foot ulcers, toe or transme tatarsal amputations. IMPRESSION: 1.Resting ankle-wrist index is borderline normal on the right at 0.9 and normal on the left at 1. 2.Normal triphasic waveforms in the bilateral dorsalis pedis and posterior tibial arteries. Reviewed by: Kiara Cuello MD on 02/01/2024 4:35 PM PST Approved by: Kiara Cuello MD on 02/01/2024 4:35 PM PST Station ID: [id number]
== END 2024-02-01 14:54 | disposition home or self-care (01) ==
LOC: DI 14:53
PROVIDERS: ATTEND Physician Assistant Medical
DX: I87.8 Other specified disorders of veins (principal)
CPT/HCPCS: 93922

== ENCOUNTER 2024-05-06 07:35 | Outpatient (CLI) | payer OTHER ==
[2024-05-06 08:11] LABS: CALCIUM 9.1 mg/dL (8.5-10.3); CREATININE 0.8 mg/dL (0.6-1.3); POTASSIUM 3.9 mmol/L (3.5-4.5)
[2024-05-06 11:00] LABS: ESTIMATED AVERAGE GLUCOSE 140 mg/dL (70-100); HEMOGLOBIN A1c% 6.5 % (4.27-6.07)
== END 2024-05-06 07:36 | disposition home or self-care (01) ==
LOC: LAB 07:35
PROVIDERS: ATTEND Physician Assistant Medical
DX: E11.9 Type 2 diabetes mellitus without complications (principal)
CPT/HCPCS: 36415; 80048; 83036

== ENCOUNTER 2024-05-23 16:00 | Outpatient (CLI) | payer OTHER ==
--- NOTE | 2024-05-23 16:33 | Sleep Patient Instructions ---
Sleep Center Visit Summary - Patient Visit Information Reason for Visit: Annual follow-up - Patient Instructions Additional Instructions: You will continue with CPAP therapy with pressure set at 8-12 cmH2O. A supply prescription will be updated and sent to your new CPAP supplier. We encourage you to continue to try to lose weight. Please follow up with the sleep care office in 1 year. - Clinic Information Contact: [facility] [address] [place] [id number] [email or web address] T: [phone]
--- NOTE | 2024-05-23 16:38 | SLEEP CARE CONSULTATION ---
Information from patient questionnaire entered by Jessica Butt. I have reviewed and concur with the information entered by Jessica Butt. This document represents the service I personally performed and the decisions made by , Ananya Reed ARNP. History of Present Illness Service Date and Time: 05/23/2024 1600 Previous diagnosis: Moderate, Obstructive Sleep Apnea-Hypopnea Syndrome AHI: 17.6 (in 2007) Reason for follow up: annual (LAST SEEN 09/2022) Equipment type: CPAP (RESMED Airsense 10, s/u 12/24/2019) [facility], needs new DME) Mask style: Nasal Mask brand: Resmed (AirFit N30i) Backup mask available: Yes Last cushion change: last month Prior sleep studies: Yes Year and Where: [address] [place] [address] HPI additional information: JAMAL TAPIA was diagnosed to have moderate, AHI 17.6, obstructive sleep apnea-hypopnea syndrome and returned today for CPAP therapy annual follow-up. Sleep Study - Results Prior sleep studies: Yes Year and Where: [address] [place] [address] CPAP Compliance Data - Data Reviewed with Patient Average duration of nightly device use: 9 HRS 52 MINS Compliance rate %: 100 (05/22/23-05/20/24; 365/365 days used) Current pressure setting (cmH2O): 8-12 Average residual AHI: 1.2 Central apnea: 0 Obstructive apnea: 0.8 Hypopnea: 0.4 Average large leak: 1.4 L/min Subjective Patient concerns: reports: aerophagia (bloated? - feels all the time). denies: mask discomfort, air blowing in eyes, mask leak noise, condensation in mask/hose, nasal congestion, dry mouth, nose, throat, epistaxis Observed to snore while using device: No Current pressure setting perceived as: comfortable On therapy, patient: reports: sleeping better, awakening more refreshed, being more awake and alert during the day, more rested overall. denies: drowsiness while driving Initial Dickens Sleepiness Scale score: 5 (in 2010) Current Dickens Sleepiness Scale score: 1 Allergies and Home Medications Known drug allergies: Yes (as listed) Drug allergies reviewed: Yes Home medication list reviewed: Yes (as listed) Allergy and home medication list: Allergies adhesive Allergy (Verified 05/21/24 10:15) Rash ketorolac tromethamine * [From Toradol] Allergy (Verified 05/21/24 10:15) Rash latex Allergy (Verified 05/21/24 10:15) Rash hydrocodone bitartrate * [From Vicodin] Adverse Reaction (Verified 05/21/24 10:15) Headache Sulfa (Sulfonamide Antibiotics) Adverse Reaction (Verified 05/21/24 10:15) Cramps terfenadine [From Seldane] Adverse Reaction (Verified 05/21/24 10:15) Headache Medications: Propanolol 10 mg 2 x day Omeprazole 20 mg 2 x day Rosuvastatin 15 mg daily Baby aspirin 2 x a week Vit D3 2000 IU Claritin Monjauro weekly injection Review of Systems Review of systems same as previous: No (non-alcoholic fatty liver) Physical Exam Vital signs obtained and entered by: Ananya Phelps NP Blood Pressure: 119/88 Cuff size: wrist (right) Heart Rate: 90 O2 Saturation: 97 Height: 5 ft 7 in (PER PT ) Weight: 303 lb 3.2 oz Body Mass Index: 47.5 BMI Classification: Morbidly Obese Impression and Plan 1. Obstructive Sleep Apnea-Hypopnea Syndrome, moderate, with good treatment compliance and good apnea control. On CPAP therapy, the patient has better sleep quality and is more rested overall. Patient says she stopped using [facility] because they would charge her for things and not give her a bill. She has been purchasing her supplies online or from others. She would like to try and deal with a new DME company. I will have my brand marketing coordinator inform of DME options. A DWO prescription will then be made. Patient advised to contact this office if further supply problems. Patient's apnea severity and rationale for treatment to reduce apnea, improve sleep quality and reduce cardiovascular and cerebrovascular events was reviewed. I also reviewed the benefit of consistent device use of CPAP for diabetes, gastric reflux. 2. Obesity, unspecified. Currently patients BMI is 47.5. Obesity increases the risk of apnea, CPAP pressure requirements and overall health risks especially cardiovascular and diabetes. Thus patient is advised to lose weight. * Continue auto CPAP pressure at 8-12 cmH2O * Update supply prescription * Transfer DME * Notify me if snoring with mask or feeling that the pressure is too much or too little * Attempt to lose weight * Call this office if any problems using CPAP * Return for follow up in 12 months, or sooner if concerns arise Counseling Topics: Spare mask, Weight loss health impact Prescriptions: Device supplies (with DME transfer) Follow up with Sleep Care in: 1 year Visit Type: In Office Time Spent with Patient (minutes): 23 Provider Statement: I spent 100% of the Face to Face Visit with the patient with greater than 50% spent counseling the patient and coordination of care.
[2024-05-23 17:01] VITALS: BP 119/88; O2SAT 97
== END 2024-05-23 16:01 | disposition home or self-care (01) ==
LOC: SC 16:00
PROVIDERS: ATTEND Nurse Practitioner Family
DX: G47.33 Obstructive sleep apnea (adult) (pediatric) (principal); E66.01 Morbid (severe) obesity due to excess calories; Z68.42 Body mass index [BMI] 45.0-49.9, adult
CPT/HCPCS: 99212; 99213

== ENCOUNTER 2024-07-22 14:11 | Outpatient (CLI) | payer OTHER ==
--- NOTE | 2024-07-22 17:20 | DEXA Report ---
PROCEDURE: Dexa Spine and/or Hip INDICATIONS: POST MENOPAUSAL TECHNIQUE: Dual energy x-ray absorptiometry (DXA) was performed on a [employer] System. Regions measur ed are the AP Spine, femoral neck, and if needed forearm. COMPARISON: None FINDINGS: Lumbar Spine: Bone Mineral Density: 0.934 g/cm/cm,T score: -2.1. Left Femoral Neck: Bone Mineral Density: 0.871 g/cm/cm, T score: -1.2. Left Hip: Bone Mineral Density: 0.93 g/cm/cm,T score: -0.2. FRAX risk factors: None given. 10 year risk of major osteoporotic fracture: 16% major osteoporotic fracture = hip, clinical vertebral, proximal humerus, distal forearm 10 year risk of hip fracture: 0.6% (T score greater or equal to -1.0: NORMAL) (T score from -1.1 to -2.4: OSTEOPENIA) (T score less than or equal to -2.5 to: OSTEOPOROSIS) Impression: By WHO criteria, this patient has low bone density (osteopenia). Patients with diagnosis of osteoporosis or osteopenia should have regular bone mineral density assess ment. For those eligible for Medicare, routine testing is allowed once every 2 years. Testing frequ ency can be increased for patients who have rapidly progressing disease or for those who are receivin g medical therapy to restore bone mass. Reviewed by: Sam Seals MD on 07/22/2024 5:19 PM PDT Approved by: Sam Seals MD on 07/22/2024 5:19 PM PDT Station ID: [id number]
== END 2024-07-22 14:12 | disposition home or self-care (01) ==
LOC: DI 14:11
PROVIDERS: ATTEND Physician Assistant Medical
DX: M85.89 Other specified disorders of bone density and structure, multiple sites (principal); Z78.0 Asymptomatic menopausal state

== ENCOUNTER 2024-07-25 07:45 | Outpatient (CLI) | payer OTHER ==
--- NOTE | 2024-07-29 08:10 | Mammography Report ---
BILATERAL DIGITAL DIAGNOSTIC MAMMOGRAM 3D/2D: 07/25/2024 CLINICAL: Diffuse bilateral breast pain. Comparison is made to exams dated: 03/19/2023 mammogram, 07/15/2021 mammogram, 02/14/2023 mammogram, mammogram, 11/08/2016 mammogram, and 11/01/2015 mammogram - [facility]. There are scattered areas of fibroglandular density in both breasts (category b / 25%-50% glandular t issue). There is no abnormality in the left breast to correspond to the diffuse left breast pain. There is an incidental new 1.4 cm round low density asymmetry with a circumscribed margin in the righ t breast anterior depth 11:00 position. This is seen in additional views. There are several other c ysts in the adjacent anterior breast tissue. No other significant masses, calcifications, or other findings are seen in either breast. Mammograms are otherwise stable. IMPRESSION: INCOMPLETE: NEEDS ADDITIONAL IMAGING EVALUATION Left breast mammograms are stable. There is no abnormality seen in the left breast to correspond with the diffuse pain. The new 1.4 cm round asymmetry in the right breast most likely is a cyst or clustered cysts, as there are several other in the area, but remains indeterminate. An ultrasound is recommended. This was p erformed immediately following this exam. Based on the Tyrer Cuzick model (a risk assessment model) the patient's lifetime risk is 5.0% and her 10 year risk is 2.1%. According to the ACR, ACS, and NCCN guidelines, an annual breast MRI exam marck g with mammogram is recommended if the patient's lifetime risk is 20% or greater. This exam was interpreted at Station ID: [id number]. NOTE: For mammograms, a report in lay terms will be sent to the patient. Approximately 15% of breast malignancies will not be visualized mammographically. In the management of a palpable breast mass, a negative mammogram must not discourage biopsy of a clinically suspicious lesion. Electronically Signed By: Jami lindsey/:07/25/2024 08:45:50 ACR BI-RADS Category 0: Incomplete 3340F PARENCHYMAL PATTERN: (A) - The breast(s) demonstrate(s) scattered fibroglandular densities. BI-RADS CATEGORY: (0) - 0 Ultrasound [id number] Immediate follow-up LATERALITY: (B)
--- NOTE | 2024-07-29 08:10 | Ultrasound Report ---
LIMITED ULTRASOUND OF RIGHT BREAST: 07/25/2024 CLINICAL: Right Breast Cysts. Comparison is made to exams dated: 03/19/2023 ultrasound, 03/19/2023 mammogram, 02/14/2023 mammogram, a nd 07/15/2021 mammogram - [facility]. Color flow ultrasound of the right breast 10-12 o'clock, and retroareolar regions was performed. Gra y scale images of the real-time examination were reviewed. There is a benign 1.6 cm x 1.3 cm x 0.8 cm oval cyst in the right breast at 11 o'clock anterior depth 4 cm from the nipple. This oval cyst is anechoic with an echogenic boundary. This correlates with mammography findings. Color flow imaging demonstrates that there is no vascularity present. Other adjacent simple and debris-filled cysts are stable, also corresponding to the mammogram appeara nce. IMPRESSION: BENIGN There is no sonographic evidence of malignancy. The 1.6 cm x 1.3 cm x 0.8 cm oval cyst in the right breast corresponds to the mammogram finding, is c onsistent with a simple cyst and is benign. Return to annual mammogram screening schedule is recommended. Findings and recommendations were conveyed to the patient at time of exam. This exam was interpreted at Station ID: [id number]. Electronically Signed By: Jami lindsey/:07/25/2024 09:10:00 letter sent: No_Letter Ultrasound BI-RADS: 2 Benign BI-RADS CATEGORY: (2) - 2 Mammogram [id number] return to screening LATERALITY: (B)
== END 2024-07-25 07:46 | disposition home or self-care (01) ==
LOC: DI 07:45
PROVIDERS: ATTEND Physician Assistant Medical
DX: N64.4 Mastodynia (principal); R92.323 Mammographic fibroglandular density, bilateral breasts; N60.01 Solitary cyst of right breast